=== PATIENT | male | born 1960 | race American Indian/Alaskan Native ===

== ENCOUNTER → 2016-10-04 | Outpatient (CLI) | payer MEDICARE, MEDICAID | LOC: MW.CHFP 08:00 | PROVIDERS: ATTEND Emergency Medicine | DX: J20.9 Acute bronchitis, unspecified (principal) | CPT/HCPCS: G0463 ==

== ENCOUNTER 2023-09-06 08:51 | Day surgery (SDC) | payer MEDICARE, MEDICAID ==
[2023-09-06] MEDS ORDERED: Lidocaine 2% 5 ML SDV ONE (09:04)
[2023-09-06] MEDS ORDERED: Propofol 200 MG/20 ML SDV ONE ×2 (09:04→10:35)
[2023-09-06] MEDS ORDERED: fentaNYL 100 MCG/2 ML SDV ONE (09:04)
[2023-09-06] MEDS: Lactated Ringers 1,000 ML IV SCH (09:40)
[2023-09-06] MEDS ORDERED: Lactated Ringers 1,000 ML IV SCH (10:45)
[2023-09-06 10:51] VITALS: PULSE 83
[2023-09-06 10:53] VITALS: BP 99/64
== END 2023-09-06 11:12 | disposition home or self-care (01) ==
LOC: MW.SDS 08:51
PROVIDERS: ATTEND Surgery
DX: Z12.11 Encounter for screening for malignant neoplasm of colon (principal); I10 Essential (primary) hypertension; E78.00 Pure hypercholesterolemia, unspecified; F32.A Depression, unspecified; F25.9 Schizoaffective disorder, unspecified; F17.210 Nicotine dependence, cigarettes, uncomplicated; Z79.899 Other long term (current) drug therapy; Z79.82 Long term (current) use of aspirin
CPT/HCPCS: 45380; 82947; J2704; J3010; J7120; 00811; J3490